=== PATIENT | male | born 1975 | race Caucasian/White ===

== ENCOUNTER 2017-11-27 01:06 | Emergency (ER) | payer OTHER, SELFPAY ==
[2017-11-27 02:27] VITALS: BP 117/70; PULSE 48; RESP 18; TEMP 36.1; O2SAT 99; BMI 22.1
--- NOTE | 2017-11-27 02:30 | DI.RAD.S_ITS ---
PROCEDURE: XR HAND RT MIN 3V INDICATIONS: dog bite TECHNIQUE: 3 views of the hand(s) acquired. COMPARISON: None. FINDINGS: Bones: No fractures or dislocations. Carpal bones are normally aligned. No suspicious bony lesions. Soft tissues: No suspicious soft tissue calcifications. IMPRESSION: No visualized acute fracture or dislocation. However, if clinical concern and/or pain persist, short interval imaging followup in 7-10 days is recommended, as occult injury cannot be definitively excluded. Dictated by: Kaylynn Moura M.D. on 11/27/2017 at 8:33 Approved by: Kaylynn Moura M.D. on 11/27/2017 at 8:34
[2017-11-27] MEDS: AMOXICILLIN/CLAV 875/125 MG 1 TAB PO (03:22)
[2017-11-27] MEDS: HYDROCODONE/ACET 5/325 PREPACK 1 BOTTLE MISC (03:25)
--- NOTE | 2017-11-27 03:28 | ED_ITS ---
HPI - Animal Bite General Chief Complaint: Animal Bite Stated Complaint: DOG BITE TO RIGHT PALM Time Seen by Provider: 11/27/17 01:14 Source: patient Mode of arrival: ambulatory Limitations: no limitations History of Present Illness HPI narrative: 42-year-old otherwise healthy male presents with chief complaint of a dog bite to his right hand. His dog and the dog in question were wrestling and became heated and he attempted to separate the dogs. He was then bitten by the other dog whom is healthy and has immunizations up today. It is his friend's dog and can be observed. He has suffered a laceration right hand at the base of his MD complaint: animal bite Onset (ago): hour(s) Animal: dog Description of animal: household pet Mechanism: bite Right: hand Pain description: sharp Context: playing with animal and animals fighting Associated symptoms: none Treatments prior to arrival: wound dressing(s) Related Data Previous Rx's Medication Instructions Recorded amoxicillin-pot clavulanate 1 tab PO BID #20 tab 11/27/17 [Augmentin] Allergies Allergy/AdvReac Type Severity Reaction Status Date / Time No Known Drug Allergies Allergy Verified 11/27/17 02:31 Review of Systems Review of Systems All systems reviewed & are unremarkable except as noted in HPI and below Constitutional Denies chills, Denies fever(s), Denies lethargy and Denies weakness Eyes Denies change in vision, Denies eye discharge, Denies irritation and Denies loss of vision ENT Ears, Nose, Mouth, and Throat: Denies change in voice, Denies neck pain and Denies sore throat Cardiovascular Denies chest pain, Denies irregular heart rhythm, Denies lightheadedness, Denies palpitations, Denies dyspnea, Denies dyspnea on exertion and Denies orthopnea Respiratory Denies cough, Denies dyspnea, Denies dyspnea on exertion and Denies wheezing Gastrointestinal Gastrointestinal: Denies abdominal pain, Denies change in bowel habits, Denies diarrhea, Denies nausea and Denies vomiting Genitourinary Denies hematuria, Denies flank pain, Denies urinary incontinence and Denies urinary urgency Musculoskeletal Reports limited range of motion and Denies neck pain Integumentary/Breasts Denies pruritus, Denies erythema, Denies rash and Reports wounds Neurologic Denies confusion, Denies loss of vision and Denies weakness Psychiatric Denies anxiety, Denies confusion, Denies depression, Denies homicidal ideation and Denies suicidal ideation Endocrine Denies palpitations Hematologic/Lymphatic Denies easy bruising Allergic/Immunologic Denies wheezing Exam Initial Vital Signs Initial Vital Signs: Vital Signs Temperature 97 F L 11/27/17 02:27 Pulse Rate 48 L 11/27/17 02:27 Respiratory Rate 18 11/27/17 02:27 Blood Pressure 117/70 11/27/17 02:27 Pulse Oximetry 99 11/27/17 02:27 Const General: cooperative and well developed Nutritional Appearance: well nourished Orientation: alert, awake, oriented x3 and not confused HENMT Head: normocephalic and atraumatic Ears: external ears normal and TM's normal bilaterally Nose: external nose normal and No nasal discharge Face and sinus: sinuses nontender, face symmetric, no sinus tenderness and No dry mucous membranes Mouth: oral mucosae normal and moist mucous membranes Teeth and gingiva: dentition normal Throat: tonsils normal and uvula midline Resp Effort & Inspection: normal respiratory effort, able to speak in complete sentences, no respiratory distress and no use of accessory muscles Auscultation: clear to auscultation bilaterally, no rales, no rhonchi and no wheezes Skin Trauma: laceration (Thenar minutes right hand) and puncture Extrem Right upper extremity: hand Procedures Laceration Repair Laceration 1: Site: hand Side (If applicable): right Size (cm): 3 Description: irregular Depth: simple, single layer Local Anesthetic: lidocaine 1% Amount of anesthesia used (mL): 3 Pre-repair: wound explored, irrigated extensively and deep structures intact Skin layer closed with: nylon Size (cm): 5-0 Number of sutures: 3 Technique: simple, interrupted Course Orders Ordered: ED Orders 11/27/17 02:30 XR hand RT min 3V Stat Discontinued Medications Hydrocodone Bitart/Acetaminophen (Vicodin Prepack) 1 bottle MISC SEEINSTR ONE Stop: 11/27/17 03:23 Amoxicillin/Clavulanate Potassium (Augmentin 875-125 Mg) 1 tab PO NOW ONE Stop: 11/27/17 03:15 Last Admin: 11/27/17 03:22 Dose: 1 tab Vital Signs - 8 hr 11/27/17 02:27 Temperature 97 F L Pulse Rate 48 L Respiratory Rate 18 Blood Pressure 117/70 Pulse Oximetry 99 Discharge Plan Departure Patient Disposition: Home, Self-Care Clinical Impression: Bite by animal Instructions: DI for Animal Bites Activity Restrictions/Additional Instructions: *You have been diagnosed with [ right hand dog bite with laceration ] *What to do: *Take medications as directed *Follow up with your primary care provider in 5-7 days, call for an appointment. Let them know you were seen in the Emergency Department and that we ask that you be seen in follow up *Return to ER if you should have any new, worsening or concerning symptoms , such as [ increasing swelling, pain, drainage, red streaks appear arm, fever, other concerning symptoms] Prescriptions: New amoxicillin-pot clavulanate [Augmentin] 875-125 mg tablet 1 tab PO BID Qty: 20 RF: 0
--- NOTE | 2017-11-27 04:23 | PC.NURSE ---
AFTER DR GOLDSMITH SUTURED HIS LACERATION I DRESSED THE WOUND WITH BACITRACIN,TELFA,GAUZE WRAP AND THEN COBAN.THE WOUND WAS SOAKED IN BETADINE AND WATER THEN DR. GOLDSMITH IRRIGATEDTHE PUNCTURE WOUND AND LAC BEFORE SUTURES.
[2017-11-27 04:27] VITALS: BP 117/70; PULSE 60; RESP 18; TEMP 36.6; O2SAT 99
== END 2017-11-27 03:40 | disposition home or self-care (01) ==
PROVIDERS: Emergency Provider Emergency Medicine
DX: S61.451A Open bite of right hand, initial encounter (principal); W54.0XXA Bitten by dog, initial encounter
CPT/HCPCS: 12002; 73130; 99283